=== PATIENT | female | born 1995 | race African-American/Black ===

== ENCOUNTER 2019-07-06 22:26 | Inpatient (IN) | payer MEDICAID ==
[~2019-07-06] VITALS: Ht 157.5 cm; Wt 58.5 kg
[2019-07-06] MEDS ORDERED: HYDROMORPHONE 1 MG/1 ML DISP.SYRIN ONE (22:53)
[2019-07-06] MEDS ORDERED: ONDANSETRON HCL/PF 4 MG/2 ML VIAL ONE (22:53)
[2019-07-06] MEDS ORDERED: HYDROMORPHONE INJ 2 MG/ML DISP.SYRIN IV ONE (23:00)
[2019-07-06] MEDS ORDERED: ONDANSETRON HCL/PF 4 MG/2 ML VIAL IVP ONE (23:00)
[2019-07-06] MEDS ORDERED: IV NS 0.9% 1,000 ML BAG IV ONE (23:00)
--- NOTE | 2019-07-06 23:00 | NUR ---
BIBRA. C/O "HAVING ABD PAIN, X1 VOMIT BLOOD" -SOB AOX4. VSS. AMBULATORY. UPON ASSESSMENT, PT IN EXCRUTIATING PAIN THAT COMES AND GOES. STATES PAIN 9/10 AND SHARP. HX OF PANCREATITIS, SAYS SYMPTOMS FEEL LIKE FLARE UP. APPEARS ANXIOUS/FEARFUL. NO OTHER COMPLAINTS AT THIS TIME. READY FOR EVAL.
[2019-07-06 23:10] LABS: BASOPHILS % (AUTO) 0.7 % (0.0-2.0); EOSINOPHILS % (AUTO) 0.8 % (0.0-6.0); HEMATOCRIT 32 % (33-45); HEMOGLOBIN 10.3 g/dL (11.5-14.8); LYMPHOCYTES # (AUTO) 1.6 /CMM (0.8-4.8); LYMPHOCYTES % (AUTO) 38.5 % (20.0-44.0); MEAN CORPUSCULAR HGB CONC 32 g/dl (31.0-36.0); MEAN CORPUSCULAR VOLUME 87 fL (82-100); MONOCYTES # (AUTO) 0.6 /CMM (0.1-1.30); NEUTROPHILS # (AUTO) 1.9 /CMM (1.8-8.9); PLATELET COUNT (AUTO) 224 /CMM (150-450); WHITE BLOOD COUNT (AUTO) 4.1 K/uL (4.3-11.0)
[2019-07-06 23:25] LABS: ALBUMIN 3.4 g/dL (3.4-5.0); BILIRUBIN,DIRECT 0.1 mg/dL (0.0-0.2); BILIRUBIN,TOTAL 0.4 mg/dL (0.2-1.0); CREATININE 0.7 mg/dL (0.6-1.3); POTASSIUM 3.6 mmol/L (3.5-5.1); TOTAL PROTEIN, SERUM 8.6 g/dL (6.4-8.2)
--- NOTE | 2019-07-07 00:59 | NUR ---
CALLED [facility] AND SPOKE TO CHINO TO F/U W/ CT SCAN RESULTS.
--- NOTE | 2019-07-07 01:24 | NUR ---
REPORT CALLED TO M/S ROSA ESPOSITO.
[2019-07-07] MEDS ORDERED: ZOLPIDEM TARTRATE 5 MG TABLET PO PRN (02:30)
[2019-07-07] MEDS ORDERED: ACETAMINOPHEN 325 MG TABLET PO PRN (02:30)
[2019-07-07] MEDS ORDERED: MAG HYDROX/AL HYDROX/SIMETH 30 ML UDC PO PRN (02:30)
[2019-07-07] MEDS ORDERED: MAGNESIUM HYDROXIDE 30 ML UDC PO PRN (02:30)
--- NOTE | 2019-07-07 02:50 | NUR ---
CALLED MEGHAN FOR CT READ.
--- NOTE | 2019-07-07 03:35 | NUR ---
RN OPEN NOTES RECEIVED PATIENT FROM ER VIA WHEELCHAIR. A/OX4. NO SIGNS OF DISTRESS OR DISCOMFORT. BREATHING EVEN AND UNLABORED. IV ACCESS IN L HAND, PATENT AND INTACT, NO SIGNS OF REDNESS OR INFILTRATION. ORIENTED PATIENT TO UNIT AND ROOM. NO SKIN ISSUES NOTED. STATES PAIN IS 8/10 IN UPPER ABD, WILL ADMINISTER ORDERED PRN PAIN MEDS. BED IN LOW LOCKED POSITION WITH SIDE RAILS X2. CALL LIGHT WITHIN REACH. WILL CONTINUE TO MONITOR.
[2019-07-07 04:00] VITALS: BP 129/61
[2019-07-07] MEDS: HYDROMORPHONE INJ 2 MG/ML DISP.SYRIN IV PRN ×4 (04:17→23:39)
[2019-07-07] MEDS: ONDANSETRON HCL/PF 4 MG/2 ML VIAL IVP PRN ×2 (04:17→11:30)
--- NOTE | 2019-07-07 04:17 | NUR ---
RN NOTES ADMINISTERED ZOFRAN 4MG ORDERED FOR NAUSEA AND DILAUDID 1MG ORDERED FOR 8/10 UPPER ABD PAIN, AT PATIENT REQUEST. VSS. WILL CONTINUE TO MONITOR.
[2019-07-07] MEDS: IV NS 0.9% 1,000 ML IV PRN ×2 (04:19→11:30)
--- NOTE | 2019-07-07 07:19 | NUR ---
RN CLOSING NOTES PATIENT RESTING IN BED, EASILY AROUSABLE. A/OX4. NO SIGNS OF DISTRESS OR DISCOMFORT. BREATHING EVEN AND UNLABORED. IV ACCESS IN L HAND WITH NS INFUSING, PATENT AND INTACT, NO SIGNS OF REDNESS OR INFILTRATION. ALL NEEDS MET. NO SIGNIFICANT CHANGES THROUGH THE NIGHT. BED IN LOW LOCKED POSITION WITH SIDE RAILS X2. CALL LIGHT WITHIN REACH. WILL ENDORSE TO AM SHIFT FOR BEN.
--- NOTE | 2019-07-07 07:35 | NUR ---
MS RN OPENING NOTE RECEIVED PT IN BED, ALERT AND ORIENTED X4, DENIES CHEST PAIN, SOB, N/V, RATES CURRENT ABD PAIN A 3/10 AND TOLERABLE AT THIS TIME. BREATHING IS EVEN AND UNLABORED ON ROOM AIR, NO ACUTE DISTRESS NOTED AT THIS TIME, LEFT HAND #20G IS INFUSING NS @ 150ML/HR WITHOUT REDNESS OR SWELLING. NPO STATUS MAINTAINED. ALL NEEDS ATTENDED TO. BED IS LOCKED AND IN LOWEST POSITION, SIDE RAILS UP X2, BED ALARM ON, CALL LIGHT AND POSSESSIONS WITHIN REACH.
[2019-07-07 08:00] VITALS: BP 105/61
[2019-07-07 08:33] LABS: BASOPHILS % (AUTO) 0.4 % (0.0-2.0); EOSINOPHILS % (AUTO) 1.3 % (0.0-6.0); HEMATOCRIT 30 % (33-45); HEMOGLOBIN 9.5 g/dL (11.5-14.8); LYMPHOCYTES # (AUTO) 1.1 /CMM (0.8-4.8); LYMPHOCYTES % (AUTO) 51.3 % (20.0-44.0); MEAN CORPUSCULAR HGB CONC 32 g/dl (31.0-36.0); MEAN CORPUSCULAR VOLUME 88 fL (82-100); MONOCYTES # (AUTO) 0.3 /CMM (0.1-1.30); MONOCYTES % (AUTO) 12.5 % (2.0-12.0); NEUTROPHILS # (AUTO) 0.7 /CMM (1.8-8.9); NEUTROPHILS % (AUTO) 34.5 % (43.0-81.0); PLATELET COUNT (AUTO) 202 /CMM (150-450); RED BLOOD CELL COUNT(AUTO) 3.41 MIL/uL (4.0-5.2); WHITE BLOOD COUNT (AUTO) 2.1 K/uL (4.3-11.0)
[2019-07-07 09:06] LABS: BILIRUBIN,DIRECT 0.1 mg/dL (0.0-0.2); BILIRUBIN,TOTAL 0.3 mg/dL (0.2-1.0); CALCIUM, SERUM 8.1 mg/dL (8.5-10.1); CREATININE 0.7 mg/dL (0.6-1.3); MAGNESIUM 1.6 mg/dL (1.8-2.4); PHOSPHORUS 4.8 mg/dL (2.5-4.9); POTASSIUM 4.1 mmol/L (3.5-5.1); TOTAL PROTEIN, SERUM 7.7 g/dL (6.4-8.2)
--- NOTE | 2019-07-07 12:00 | NUR ---
MS RN NOTE THE REELING MACHINE SETUP OPERATOR REPORTED TO THE NURSE THAT THE PT WAS SEEN TAKING FOOD OUT OF HER PERSONAL BACKPACK. DISCUSSED WITH PT AND INFORMED PT THAT AT THIS TIME SHE IS NPO EXCEPT ICE CHIPS, THE NURSE NOTED A BAG OF CHIPS IN PT'S BACKPACK AND A PLASTIC BOTTLE WITH JUICE, EXPLAINED RISKS AND BENEFITS OF EATING AND REMINDED PT THAT SHE IS NPO EXCEPT ICE CHIPS AT THIS TIME. PT VERBALIZED UNDERSTANDING. BAG WITH CHIPS AND BOTTLE PLACED INSIDE BEDSIDE DRESSER.
--- NOTE | 2019-07-07 12:20 | NUR ---
MS RN NOTE PT REQUESTED LEFT HAND IV TO BE CHANGED AND PULLED OUT IV "BECAUSE IT WAS HURTING ME", NOTED WITH CATHETER TIP INTACT. NEW IV INSERTED AT THE RIGHT HAND #22G AND IS PATENT CLEAN DRY AND INTACT. INFORMED PT TO NOT PULL OUT PERIPHERAL IVS AND TO CALL THE NURSE FOR CONCERNS REGARDING HER IV. PT STATED "OKAY".
[2019-07-07] MEDS: Magnesium 1GM/D5W 100ML PREMIX 100 ML IV SCH ×2 (13:53→15:23)
[2019-07-07 13:57] LABS: BAND % (MANUAL) 1 % (0.0-5.0); LYMPHOCYTES % (MANUAL) 53 % (16-48); NEUTROPHILS % (MANUAL) 40 (42-76)
[2019-07-07 13:58] LABS: EOSINOPHILS % (MANUAL) 1 % (0-4); MONOCYTES % (MANUAL) 5 % (0-11.0)
--- NOTE | 2019-07-07 14:58 | NUR ---
MS RN NOTE PAGED VIA [employer], AWAITING CALL BACK.
--- NOTE | 2019-07-07 15:02 | NUR ---
MS RN NOTE INFORMED THAT PT WAS FOUND TO HAVE AN ADDITIONAL EMPTY BOTTLE IN BAG THAT SMELLED STRONGLY OF ETOH (VERIFIED WITH CHARGE NURSE) WHILE MOVING PATIENT TO DIFFERENT ROOM. PT DENIES DRINKING FROM BOTTLE AND STATES "I POURED IT OUT I DIDN'T DRINK ALCOHOL". NO NEW ORDERS AT THIS TIME. EMPTIED ENTIRE CONTENTS OF BAG AND CHECKED ALL POCKETS OF PANTS AND SHIRT AND SHOES WITH PROMOTION PRODUCER, DID NOT FIND ANY WEAPONS, ALCOHOL, OR DRUGS IN PERSONAL BELONGINGS. PT CONTINUES TO DENY DRINKING FROM ADDITIONAL BOTTLE, DISCUSSED RISKS AND BENEFITS OF INGESTING ANYTHING WITHOUT INFORMING THE NURSE AND POTENTIAL RISK FOR INTERACTIONS OR SERIOUS ADVERSE EFFECTS WITH MEDICATIONS BEING ADMINISTERED. PT VERBALIZE UNDERSTANDING.
--- NOTE | 2019-07-07 15:06 | NUR ---
Social service consult requested by Dr. Acosta for possible homelessness. Pt. is a 23 year old female who was admitted to [facility] for Alcoholic Pancreatitis. JIMBO is familiar with pt. from a previous admission in 2018. JIMBO met with pt. bedside. Pt. is alert and oriented x 4. Pt. has a piercing on her right eyebrow. Pt. denies being homeless and stated she lives at a house in [place], which she moved into recently. When SW inquired about the address, pt. stated she doesn't know it. Pt. appears guarded. Pt. is a pain medication seeker. Pt. was in the Independent living Program through [facility] but has emancipated. Pt. states she only drinks alcohol occasionally and stated she drinks "whatever alcohol is available." Per previous JIMBO notes in 2018, pt. had stated she drinks vodka, whiskey and beer on a regular basis. Pt. is not very forthcoming with information. Pt. denies drug use but states she smokes marijuana but not as frequently anymore. Pt. smokes 3 cigarettes per day. Pt. receives food stamps and GR. Pt. did not want to provide an emergency contact number. JIMBO offered pt. Transitional Age Youth resources which include Drop-in centers such as [facility] , [facility] and Transitional Housing such as [facility] and [facility] , however pt. declined. Pt. is requesting taxi voucher upon discharge. JIMBO informed pt. taxi voucher is not possible since pt. is ambulatory and will be given TAP card. Pt. stated, " I cannot walk." JIMBO informed pt. she will have physical therapy evaluate her. No other social service needs are requested at this time. SW is available, if needed. Pt. to sign Homeless patient Waiver form upon discharge. JIMBO updated pt's RN Obdulia and Med Surg 3 CRDiana Jarvis regarding pt's discharge plan.
--- NOTE | 2019-07-07 15:33 | NUR ---
MS RN NOTE SPOKE WITH ON THE PHONE REVIEWED MOST RECENT LAB VALUES, REPORTED PT C/O, INFORMED OF RESULTS FROM ABD US AND CT OF THE ABD/PELVIS, PER START PT ON CLEAR LIQUID DIET AND HE WILL SEE PT LATER TODAY. ORDERS REVIEWED VIA READ BACK AND CARRIED OUT.
--- NOTE | 2019-07-07 15:34 | NUR ---
MS RN NOTE CLARIFIED WITH REGARDING ETOH LAB, ORDERS RECEIVED FOR ETOH LAB STAT. VERIFIED VIA READ BACK AND CARRIED OUT
[2019-07-07 16:00] VITALS: BP 119/69
--- NOTE | 2019-07-07 17:08 | NUR ---
MS RN NOTE CHARGE NURSE PAGED VIA [employer], AWAITING CALL BACK.
[2019-07-07] MEDS ORDERED: LORAZEPAM INJ 2 MG/ML VIAL IV PRN (17:30)
--- NOTE | 2019-07-07 17:35 | NUR ---
MS RN NOTE PER CHARGE NURSE BHASKAR, SHE SPOKE WITH OVER THE PHONE, PER , ADMINISTER ATIVAN 1 MG IV NOW FOR ANXIETY AND WITHDRAW AND HOLD IV DILAUDID UNTIL AT LEAST 8 PM TONIGHT. PER CHARGE NURSE BHASKAR DOES NOT WANT TO ADJUST PAIN MEDICATIONS AT THIS TIME. WILL INFORM PATIENT AND CARRY OUT ORDERS.
--- NOTE | 2019-07-07 18:28 | NUR ---
MS RN CLOSING NOTE PT IN BED, ALERT AND ORIENTED X4, DENIES CHEST PAIN, SOB, N/V, RATES CURRENT ABD PAIN A 5/10 AND TOLERABLE AT THIS TIME. BREATHING IS EVEN AND UNLABORED ON ROOM AIR, NO ACUTE DISTRESS NOTED AT THIS TIME, LEFT HAND #22G IS INFUSING NS @ 150ML/HR WITHOUT REDNESS OR SWELLING. PT TOLERATED CLEAR LIQUID DINNER TRAY WITHOUT N/V/D/PAIN. ALL NEEDS ATTENDED TO. BED IS LOCKED AND IN LOWEST POSITION, SIDE RAILS UP X2, BED ALARM ON, CALL LIGHT AND POSSESSIONS WITHIN REACH. WILL ENDORSE TO INDUSTRIAL MAINTENANCE TECHNICIAN NURSE FOR CONTINUITY OF CARE.
--- NOTE | 2019-07-07 19:40 | NUR ---
RN NOTES RECEIVED PATIENT ASLEEP, RESTING COMFORTABLY, NO SIGNS OF ACUTE DISTRESS NOTED, SAFETY MEASURES IN PLACE, CALL LIGHT WITHIN EASY REACH, WILL MONITOR ACCORDINGLY.
[2019-07-07 20:22] VITALS: BP 100/57
[2019-07-08] MEDS: HYDROMORPHONE INJ 2 MG/ML DISP.SYRIN IV PRN ×5 (04:07→20:34)
--- NOTE | 2019-07-08 06:16 | NUR ---
RN NOTES ALL NEEDS ATTENDED AND MET, ABLE TO REST AND SLEEP AT INTERVALS, SAFETY MEASURES IN PLACE, NO SIGNS OF ACUTE DISTRESS NOTED, CALL LIGHT WITHIN EASY REACH, WILL CONTINUE TO MONITOR ACCORDINGLY.
[2019-07-08 06:32] LABS: BASOPHILS % (AUTO) 0.3 % (0.0-2.0); EOSINOPHILS % (AUTO) 1.2 % (0.0-6.0); HEMATOCRIT 28 % (33-45); HEMOGLOBIN 8.8 g/dL (11.5-14.8); LYMPHOCYTES # (AUTO) 0.8 /CMM (0.8-4.8); LYMPHOCYTES % (AUTO) 24.4 % (20.0-44.0); MEAN CORPUSCULAR HGB CONC 32 g/dl (31.0-36.0); MEAN CORPUSCULAR VOLUME 88 fL (82-100); MONOCYTES # (AUTO) 0.3 /CMM (0.1-1.30); MONOCYTES % (AUTO) 8.3 % (2.0-12.0); NEUTROPHILS % (AUTO) 65.8 % (43.0-81.0); PLATELET COUNT (AUTO) 169 /CMM (150-450); RED BLOOD CELL COUNT(AUTO) 3.15 MIL/uL (4.0-5.2); WHITE BLOOD COUNT (AUTO) 3.1 K/uL (4.3-11.0)
[2019-07-08 07:01] LABS: CALCIUM, SERUM 8.5 mg/dL (8.5-10.1); CREATININE 0.7 mg/dL (0.6-1.3); MAGNESIUM 1.4 mg/dL (1.8-2.4); PHOSPHORUS 3.4 mg/dL (2.5-4.9); POTASSIUM 4.3 mmol/L (3.5-5.1)
[2019-07-08] MEDS: IV NS 0.9% 1,000 ML IV PRN ×2 (07:57→21:21)
[2019-07-08] MEDS: Magnesium 1GM/D5W 100ML PREMIX 100 ML IV SCH ×2 (07:58→09:18)
[2019-07-08 08:00] VITALS: BP 158/77
--- NOTE | 2019-07-08 10:08 | NUR ---
RN NOTES PER DR SCHULER, ADVANCE DIET TOLERATED. WILL ADVANCE TO FULL LIQUIDS FOR LUNCH.
--- NOTE | 2019-07-08 13:00 | NUR ---
RN NOTES PER DR SCHULER, ADVANCE DIET TOLERATED. WILL ADVANCE TO SOFT DIET FOR DINNER.
[2019-07-08 16:00] VITALS: BP 135/91
--- NOTE | 2019-07-08 17:42 | NUR ---
RN NOTES PER DR SCHULER, ADVANCE DIET TOLERATED. WILL ADVANCE TO REGULAR FOR BREAKFAST TOMORROW.
--- NOTE | 2019-07-08 18:48 | NUR ---
RN CLOSING NOTES PT AWAKE AND RESTING IN BED. ALL PATIENT NEEDS MET DURING SHIFT. PT HAS Q2H DILAUDID FOR PAIN MANAGEMENT. PT HAS RIGHT HAND #22 INTACT AND RUNNING NS@150 ML/HR. PT TOLERATING ADVANCED DIET. PT MADE AWARE THAT A URINE SAMPLE IS NEEDED. SAFETY PRECAUTIONS IN PLACE, BED IN LOWEST LOCKED POSITION, X2 SIDE RAILS UP AND CALL LIGHT WITHIN REACH. WILL ENDORSE TO WIND DEVELOPMENT DIRECTOR NURSE FOR CONTINUITY OF CARE.
--- NOTE | 2019-07-08 19:00 | NUR ---
RN MS OPENING NOTES RECEIVED PATIENT IN BED, AWAKE ALERT AND ORIENTED X4, RESPIRATIONS EVEN AND UNLABORED WITH EQUAL RISE AND FALL OF CHEST, AT THIS TIME DENIES ANY PAIN OR DISCOMFORT, IV SITE TO RIGHT HAND #22G INTACT AND PATENT, IVF RUNNING ORDERED, NO REDNESS, NO INFILTRATION PRESENT, SAFETY PRECAUTIONS IN PLACE, LOW BED AND LOCKED, ORIENTED TO STAFF AND CALL LIGHT AND KEPT WITHIN REACH, FLUIDS OFFERED, GOWN PROVIDED ALL NEEDS ATTENDED AT THIS TIME, REMAINS COMFORTABLE WILL CONTINUE TO MONITOR. MADE PATIENT AWARE NEED OF URINE SAMPLE FOR TEST
[2019-07-08 20:00] VITALS: BP 120/86
--- NOTE | 2019-07-08 20:34 | NUR ---
RN MS NOTES PATIENT COMPLAINT OF PAIN TO ABDOMEN AREA, 9/10 ACHING, REQUESTING FOR PAIN MEDICATION DILAUDID, VITAL SIGNS ASSESSED WNL, DILAUDID PRN GIVEN ORDERED, 1MG GIVEN, 1MG WASTED AND VERIFIED WITH ANOTHER RN. DISCARDED IN NARCOTIC WASTE BIN, WILL CONTINUE TO MONITOR FOR EFFECTIVENESS.
[2019-07-08 20:56] VITALS: BP 120/86
[2019-07-09] MEDS: HYDROMORPHONE INJ 2 MG/ML DISP.SYRIN IV PRN ×2 (00:34→05:12)
--- NOTE | 2019-07-09 04:02 | NUR ---
RN MS NOTES REMOVED IV SITE TO RIGHT HAND, NOTED PATIENT PEELS OFF TAPE AND TEGADERM AND TOUCH IV SITE WITH BARE HANDS, MADE PATIENT AWARE NOT TO REMOVE DRESSING, EXPLAIN RISKS,WAS PREVIOUSLY REINFORCED X3 THROUGHOUT SHIFT AND CLEANSED. IV SITE REMOVED, INSERTED NEW IV LINE TO LEFT HAND #22G INTACT AND PATENT, SITE IS CLEAN , REMINDED PATIENT NOT TO TOUCH SITE OR REMOVE NEW DRESSING.
--- NOTE | 2019-07-09 05:12 | NUR ---
RN MS NOTES PATIENT C/O PAIN TO ABDOMEN 08/11 REQUESTING FOR DILAUDID, VS WNL 113/76,[id number] DILAUDID PRN GIVEN ORDERED, WILL CONTINUE TO MONITOR FOR EFFECTIVENESS.
--- NOTE | 2019-07-09 05:48 | NUR ---
RN MS NOTES PATIENT AT THIS TIME EXPRESSED THAT SHE HAS TO LEAVE BECAUSE SHE HAS TO COMPLETE HER GED AND NEEDS TO GO TO SCHOOL. STATES " NO MATTER WHAT IM LEAVING AT 6AM". VS ASSESSED REMAINS WNL. MADE PATIENT AWARE SHE WILL HAVE TO SIGN AGAINST MEDICAL ADVISE FORM, PATIENT AGREED AND SIGNED, BELONGINGS LIST REVIEWED PATIENT HAS ALL BELONGINGS WITH HER, PATIENT DID NOT CARE TO TAKE CASUALTY CLAIM ADJUSTER WITH HER. IV SITE REMOVED AND ID BAND REMOVED. RN MARINA DRY DOCK MANAGER AND HOSPITALIST MADE AWARE OF AMA.
--- NOTE | 2019-07-09 05:53 | NUR ---
RN MS NOTES PATIENT ACCOMPANIED BY UNIT STAFF FOR AMA.
--- NOTE | 2019-07-09 05:53 | NUR ---
RN MS NOTES LEFT IN STABLE CONDITION.
== END 2019-07-09 05:50 | disposition left against medical advice (07) | DRG 282 ==
LOC: ER 22:30 → TELE 07-07 00:48 → MED 07-07 01:52
PROVIDERS: ADMIT Internal Medicine; ATTEND Internal Medicine
DX: K85.20 Alcohol induced acute pancreatitis without necrosis or infection (principal); E83.42 Hypomagnesemia; I11.0 Hypertensive heart disease with heart failure; I50.9 Heart failure, unspecified; K70.10 Alcoholic hepatitis without ascites; D64.9 Anemia, unspecified; D72.819 Decreased white blood cell count, unspecified; F10.10 Alcohol abuse, uncomplicated; Y90.7 Blood alcohol level of 200-239 mg/100 ml; I25.10 Atherosclerotic heart disease of native coronary artery without angina pectoris; R74.0 Nonspecific elevation of levels of transaminase and lactic acid dehydrogenase [LDH]
CPT/HCPCS: 36415; 71045-TC; 76700-TC; 80048-TC; 80053-TC; 80061-TC; 80076-TC; 83690-TC; 83735-TC; 84100-TC; 84702-TC; 84703-TC; 85025-TC; 85730-TC; 87081-TC; 97116-TC; 97530-TC; G0378; G0480; J1170; J2060; J2405; J3475; J7030